=== PATIENT | female | born 1960 | race Caucasian/White ===

== ENCOUNTER 2017-06-10 14:05 | Emergency (ER) | payer OTHER ==
[~2017-06-10] VITALS: Ht 180.3 cm; Wt 99.8 kg
[2017-06-10] MEDS ORDERED: EFFEXOR 5050 MG/1 T1 PO (14:32)
[2017-06-10] MEDS ORDERED: FOLIC ACID1 MG PO (14:33)
[2017-06-10] MEDS ORDERED: VITAMIN B-12500 MCG PO (14:33)
[2017-06-10] MEDS ORDERED: GLUCOPHAGE XR500 MG PO (14:33)
[2017-06-10] MEDS ORDERED: L-THYROXINE PO (14:34)
[2017-06-10 14:51] LABS: ABSOLUTE BASOPHILS 0.1 thou/uL (0.0-0.2); ABSOLUTE EOSINOPHILS 0.5 thou/uL (0.0-0.7); ABSOLUTE LYMPHOCYTES 2.7 thou/uL (0.8-5.3); ABSOLUTE MONOCYTES 0.6 thou/uL (0.0-1.2); ABSOLUTE NEUTROPHILS 3.9 thou/uL (1.6-8.1); BASOPHILS 0.9 %; EOSINOPHILS 6.6 %; HEMATOCRIT 42.2 % (37.0-47.0); HEMOGLOBIN 14.3 gm/dL (12.0-15.0); LYMPHOCYTES 34.6 %; MCHC 33.9 g/dL (28.0-37.0); MCV 97.4 fL (80.0-100.0); MONOCYTES 7.7 %; MPV 6.9 fl. (7.2-11.1); NUCLEATED RBCS 0 /100WBC; PLATELET COUNT* 328 thou/uL (150-400); POLYS 50.2 %; RBC 4.33 mil/uL (4.20-5.00); RDW-CV 13.1 % (10.5-14.5); WBC 7.8 thou/uL (4.0-11.0)
[2017-06-10 15:02] LABS: PROTIME 9.7 Seconds (9.20-11.50)
[2017-06-10 15:14] LABS: URINE BILIRUBIN NEGATIVE (Negative); URINE BLOOD NEGATIVE (Negative); URINE CLARITY CLEAR; URINE COLOR YELLOW; URINE GLUCOSE-RANDOM 1+ (Negative); URINE KETONES TRACE (Negative); URINE LEUKOCYTES NEGATIVE (Negative); URINE NITRITE NEGATIVE (Negative); URINE PROTEIN NEGATIVE (Negative); URINE SPECIFIC GRAVITY >= 1.030 (1.005-1.030); URINE UROBILINOGEN 0.2 E.U./dl (0.2-1.0)
[2017-06-10 15:15] LABS: ALBUMIN 3.9 g/dL (3.4-5.0); CALCIUM 9.7 mg/dL (8.5-10.1); CREATININE 0.9 mg/dL (0.6-1.3); POTASSIUM 3.9 mmol/L (3.5-5.1); TOTAL BILIRUBIN 0.2 mg/dL (<0.1-1.0); TOTAL PROTEIN 7.6 g/dL (6.4-8.2)
[2017-06-10] MEDS ORDERED: CIPRO500 MG PO (16:17)
[2017-06-10 16:24] VITALS: BP 150/79
== END 2017-06-10 16:24 | disposition home or self-care (01) ==
LOC: M.ERS 14:05
PROVIDERS: Physician Assistant
DX: K62.5 Hemorrhage of anus and rectum (principal); K52.9 Noninfective gastroenteritis and colitis, unspecified

== ENCOUNTER → 2017-10-27 | Outpatient (CLI) | payer OTHER ==
[~2017-10-27] MED LIST: CIPRO500 MG PO; EFFEXOR 5050 MG/1 T1 PO; FOLIC ACID1 MG PO; GLUCOPHAGE XR500 MG PO; L-THYROXINE PO; VITAMIN B-12500 MCG PO
[2017-10-27 08:39] LABS: ABSOLUTE BASOPHILS 0.1 thou/uL (0.0-0.2); ABSOLUTE EOSINOPHILS 0.2 thou/uL (0.0-0.7); ABSOLUTE LYMPHOCYTES 1.8 thou/uL (0.8-5.3); ABSOLUTE MONOCYTES 0.4 thou/uL (0.0-1.2); ABSOLUTE NEUTROPHILS 3.9 thou/uL (1.6-8.1); BASOPHILS 0.8 %; EOSINOPHILS 3.4 %; HEMATOCRIT 42.8 % (37.0-47.0); HEMOGLOBIN 14.4 gm/dL (12.0-15.0); LYMPHOCYTES 28.4 %; MCH 32.6 pg (26.0-34.0); MCHC 33.7 g/dL (28.0-37.0); MCV 96.6 fL (80.0-100.0); MONOCYTES 6.5 %; MPV 7.7 fl. (7.2-11.1); NUCLEATED RBCS 0 /100WBC; PLATELET COUNT* 282 thou/uL (150-400); POLYS 60.9 %; RBC 4.43 mil/uL (4.20-5.00); WBC 6.4 thou/uL (4.0-11.0)
[2017-10-27 08:44] LABS: ALBUMIN 3.9 g/dL (3.4-5.0); CALCIUM 9.5 mg/dL (8.5-10.1); CREATININE 0.9 mg/dL (0.6-1.3); POTASSIUM 5.1 mmol/L (3.5-5.1); TOTAL BILIRUBIN 0.5 mg/dL (<0.1-1.0); TOTAL PROTEIN 7.5 g/dL (6.4-8.2)
[2017-10-27 09:47] LABS: ESR (SEDRATE) 19 mm/hr (0-30)
[2017-10-29 09:09] LABS: ANA INTERPRETATION Negative (Negative); ANTI-SSA 0.5 AI (0.0-0.9)
== END ==
LOC: M.MRI 06:40
PROVIDERS: Psychiatry & Neurology Neuromuscular Medicine
DX: G31.9 Degenerative disease of nervous system, unspecified (principal); I63.9 Cerebral infarction, unspecified; R93.8 Abnormal findings on diagnostic imaging of other specified body structures

== ENCOUNTER → 2018-04-28 | Outpatient (CLI) | payer OTHER ==
[~2018-04-28] VITALS: Ht 177.8 cm; Wt 101.6 kg
[~2018-04-28] MED LIST changes: +AMARYL2 M1 PO; +CALCIUM 600 +1 EAC1 PO; +CYCLOBENZAPRINE5 MG PO; +FLONASE 0.05%50 MCG NASAL; +LISINOPRIL5 MG PO; +LOVASTATIN 20 M20 MG PO; +MIRALAX17 GM PO; +MUCINEX600 MG PO; +SYNTHROID112 MC1 PO; +TRAMADOL 50 MG50 MG PO
[2018-04-28 14:03] VITALS: BP 130/85
== END ==
LOC: M.INT 13:22
DX: S32.020D Wedge compression fracture of second lumbar vertebra, subsequent encounter for fracture with routine healing (principal); M85.89 Other specified disorders of bone density and structure, multiple sites; G89.29 Other chronic pain; I10 Essential (primary) hypertension; X58.XXXD Exposure to other specified factors, subsequent encounter

== ENCOUNTER → 2018-05-17 | Outpatient (CLI) | payer OTHER | LOC: M.ULTRA 10:12 | DX: N28.1 Cyst of kidney, acquired (principal) ==

== ENCOUNTER → 2018-07-03 | Outpatient (CLI) | payer OTHER ==
[2018-07-03 09:06] LABS: ABSOLUTE BASOPHILS 0.1 thou/uL (0.0-0.2); ABSOLUTE EOSINOPHILS 0.3 thou/uL (0.0-0.7); ABSOLUTE LYMPHOCYTES 1.8 thou/uL (0.8-5.3); ABSOLUTE MONOCYTES 0.4 thou/uL (0.0-1.2); ABSOLUTE NEUTROPHILS 3.2 thou/uL (1.6-8.1); EOSINOPHILS 5.5 %; HEMATOCRIT 40.6 % (37.0-47.0); HEMOGLOBIN 13.9 gm/dL (12.0-15.0); LYMPHOCYTES 31.2 %; MCH 33.8 pg (26.0-34.0); MCHC 34.2 g/dL (28.0-37.0); MCV 98.8 fL (80.0-100.0); MONOCYTES 7.4 %; MPV 7.2 fl. (7.2-11.1); NUCLEATED RBCS 0 /100WBC; PLATELET COUNT* 291 thou/uL (150-400); POLYS 54.9 %; RBC 4.11 mil/uL (4.20-5.00); RDW-CV 13.3 % (10.5-14.5); WBC 5.8 thou/uL (4.0-11.0)
[2018-07-03 09:15] LABS: ALKALINE PHOSPHATASE 99 U/L (46-116); ANION GAP 9 mmol/L (7-16); BUN 12 mg/dL (7-18); CALCIUM 9.6 mg/dL (8.5-10.1); CHLORIDE 104 mmol/L (98-107); CHOLESTEROL 208 mg/dL (<200); CO2 28 mmol/L (21-32); CREATININE 0.8 mg/dL (0.6-1.3); GLUCOSE 183 mg/dL (70-99); HDL CHOLESTEROL 56 mg/dL (>40); LDL CHOLESTEROL 109 mg/dL (<100); POTASSIUM 4.5 mmol/L (3.5-5.1); SERUM ASSESSMENT Clear; SGOT 17 U/L (15-37); SGPT 19 U/L (30-65); SODIUM 141 mmol/L (136-145); TC:HDL 3.7 Ratio (Not establshd); TOTAL BILIRUBIN 0.4 mg/dL (<0.1-1.0); TOTAL PROTEIN 7.7 g/dL (6.4-8.2); TRIGLYCERIDE 216 mg/dL (<150); VLDL 43 mg/dL (<40)
[2018-07-03 10:04] LABS: ESR (SEDRATE) 27 mm/hr (0-30)
== END ==
LOC: M.LAB 08:42
PROVIDERS: Psychiatry & Neurology Neuromuscular Medicine
DX: I77.6 Arteritis, unspecified (principal); I99.8 Other disorder of circulatory system; R51 Headache; R93.89 Abnormal findings on diagnostic imaging of other specified body structures

== ENCOUNTER → 2020-06-19 | Outpatient (CLI) | payer OTHER | LOC: M.RAD 06-12 09:52 → M.ULTRA 06-15 09:30 → M.RAD 07:03 | PROVIDERS: ATTEND Family Medicine | DX: Z12.31 Encounter for screening mammogram for malignant neoplasm of breast (principal); N28.1 Cyst of kidney, acquired ==

== ENCOUNTER 2020-07-07 16:38 | Emergency (ER) | payer OTHER ==
[~2020-07-07] VITALS: Ht 177.8 cm; Wt 104.3 kg
[2020-07-07] MEDS ORDERED: NORCO5 PO (19:05)
[2020-07-07] MEDS ORDERED: IBUPROFEN 800800 M1 PO (19:05)
[2020-07-07] MEDS ORDERED: ZANAFLEX4 MG PO (19:06)
[2020-07-07] MEDS ORDERED: ZOFRAN ODT4 MG PO (19:21)
[2020-07-07 19:24] VITALS: BP 124/76
== END 2020-07-07 19:26 | disposition home or self-care (01) ==
LOC: M.ERS 16:38
DX: S32.010A Wedge compression fracture of first lumbar vertebra, initial encounter for closed fracture (principal); S32.030A Wedge compression fracture of third lumbar vertebra, initial encounter for closed fracture; E03.9 Hypothyroidism, unspecified; E11.9 Type 2 diabetes mellitus without complications; F17.210 Nicotine dependence, cigarettes, uncomplicated; V49.49XA Driver injured in collision with other motor vehicles in traffic accident, initial encounter; Y93.89 Activity, other specified; Y92.89 Other specified places as the place of occurrence of the external cause; Y99.8 Other external cause status

== ENCOUNTER → 2020-07-30 | Outpatient (CLI) | payer OTHER ==
[~2020-07-30] VITALS: Ht 177.8 cm; Wt 104.3 kg
[~2020-07-30] MED LIST changes: +IBUPROFEN 800800 M1 PO; +NORCO5 PO; +ZANAFLEX4 MG PO; +ZOFRAN ODT4 MG PO
[2020-07-30 11:05] VITALS: BP 132/73
== END ==
LOC: M.RAD 09:30
PROVIDERS: ATTEND Family Medicine
DX: M85.88 Other specified disorders of bone density and structure, other site (principal)

== ENCOUNTER → 2020-08-01 | Outpatient (CLI) | payer OTHER ==
[~2020-08-01] VITALS: Ht 177.8 cm; Wt 104.3 kg
[2020-08-01 10:44] LABS: HEMATOCRIT 38.7 % (37.0-47.0); HEMOGLOBIN 13.1 gm/dL (12.0-15.0); MCH 33.6 pg (26.0-34.0); MCHC 33.8 g/dL (28.0-37.0); MCV 99.4 fL (80.0-100.0); MPV 7.5 fl. (7.2-11.1); RBC 3.9 mil/uL (4.20-5.00); RDW-CV 12.9 % (10.5-14.5); WBC 7.5 thou/uL (4.0-11.0)
[2020-08-01 10:53] VITALS: BP 135/72
[2020-08-01 11:18] LABS: CALCIUM 9.3 mg/dL (8.5-10.1); CREATININE 0.9 mg/dL (0.6-1.3); POTASSIUM 4.5 mmol/L (3.5-5.1)
[2020-08-01 11:19] LABS: TOTAL BILIRUBIN 0.3 mg/dL (<0.1-1.0); TOTAL PROTEIN 7.2 g/dL (6.4-8.2)
[2020-08-01 11:20] LABS: APTT 24.9 Seconds (25.0-31.3); PROTIME 10.5 Seconds (9.20-11.50)
[2020-08-01 14:03] VITALS: BP 144/81
== END | disposition home or self-care (01) ==
LOC: M.INT 09:05 → M.LAB 09:45 → M.INT 10:00 → M.LAB 10:00
PROVIDERS: ATTEND Radiology Diagnostic Radiology
DX: M80.08XA Age-related osteoporosis with current pathological fracture, vertebra(e), initial encounter for fracture (principal); M54.9 Dorsalgia, unspecified; E11.9 Type 2 diabetes mellitus without complications; E03.9 Hypothyroidism, unspecified; F17.210 Nicotine dependence, cigarettes, uncomplicated; Z98.890 Other specified postprocedural states; Z79.899 Other long term (current) drug therapy; Z98.41 Cataract extraction status, right eye; Z98.42 Cataract extraction status, left eye

== ENCOUNTER → 2020-10-05 | Outpatient (CLI) | payer OTHER | LOC: M.MRI 09-24 13:30 | PROVIDERS: ATTEND Family Medicine | DX: S32.010A Wedge compression fracture of first lumbar vertebra, initial encounter for closed fracture (principal); M47.816 Spondylosis without myelopathy or radiculopathy, lumbar region; M48.061 Spinal stenosis, lumbar region without neurogenic claudication; X58.XXXA Exposure to other specified factors, initial encounter; Y93.89 Activity, other specified; Y92.89 Other specified places as the place of occurrence of the external cause; Y99.8 Other external cause status ==

== ENCOUNTER → 2020-10-22 | Outpatient (CLI) | payer OTHER | LOC: M.RAD 10-18 09:00 | PROVIDERS: ATTEND Family Medicine | DX: S32.010A Wedge compression fracture of first lumbar vertebra, initial encounter for closed fracture (principal); M85.88 Other specified disorders of bone density and structure, other site; X58.XXXA Exposure to other specified factors, initial encounter; Y92.89 Other specified places as the place of occurrence of the external cause; Y93.89 Activity, other specified; Y99.8 Other external cause status ==